=== PATIENT | male | born 1940 | race Caucasian/White ===

== ENCOUNTER 2018-05-18 16:47 | Inpatient (IN) ==
[2018-05-18] MEDS ORDERED: Sod Chloride 0.9% Inj 1,000 ML IV.CONT SCH (17:45)
[2018-05-18 19:41] LABS: Bacteria,Urine Rare /hpf; Bilirubin,Urine Negative (Negative); Clarity,Urine Clear (Clear); Color,Urine Amber (Yellw/Straw); Glucose,Urine (UA) Negative (Negative); Leukocyte Esterase,Urine Negative (Negative); Mucus,Urine Few /lpf (Occasional); Nitrite,Urine Positive (Negative); Specific Gravity,Urine 1.011 (1.002-1.035); Urobilinogen,Urine 4 or Greater mg/dL (Less than 2)
[2018-05-18 19:42] LABS: Activated Partial Thrombo Time 25.4 sec (24.3-30.1); Prothrombin Time 10.6 sec (9.8-11.6)
--- NOTE | 2018-05-18 19:50 | ED ---
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 Patient states that it started earlier this morning. [facility] given his [facility] they sent him here for further evaluation. The patient denies any headache. Patient denies any blurry vision. There are no other complaints at time of examination. Related Data Home Medications Medication Instructions Recorded Confirmed apixaban 5 mg PO BID 05/18/18 05/18/18 carvedilol 3.125 mg PO BID 05/18/18 05/18/18 doxycycline hyclate 100 mg PO BID 05/18/18 05/18/18 duloxetine 20 mg PO DAILY 05/18/18 05/18/18 hydrochlorothiazide 25 mg PO DAILY 05/18/18 05/18/18 methocarbamol 500 mg PO DAILY 05/18/18 05/18/18 methotrexate (PF) 25 mg SUB-Q QWEEK 05/18/18 05/18/18 omeprazole 40 mg PO AC 05/18/18 05/18/18 Allergies Allergy/AdvReac Type Severity Reaction Status Date / Time diatrizoate meglumine Allergy Unknown Gastrointestinal Verified 05/18/18 17:44 Upset gadobenic acid Allergy Unknown Hotflash Unverified 05/18/18 17:44 gadodiamide Allergy Unknown Edema, Unverified 05/18/18 17:44 Generalized gadoteridol Allergy Unknown Gastrointestinal Unverified 05/18/18 17:44 Upset iodine Allergy Unknown Gastrointestinal Unverified 05/18/18 17:44 Upset iodixanol Allergy Unknown Gastrointestinal Unverified 05/18/18 17:44 Upset iohexol Allergy Unknown Gastrointestinal Unverified 05/18/18 17:44 Upset potassium iodide Allergy Unknown Gastrointestinal Unverified 05/18/18 17:44 Upset povidone-iodine Allergy Unknown Gastrointestinal Unverified 05/18/18 17:44 Upset sodium iodide Allergy Unknown Gastrointestinal Verified 05/18/18 17:44 Upset sodium iodide Allergy Unknown Gastrointestinal Verified 05/18/18 17:44 Upset Review of Systems Except as stated in HPI: all other systems reviewed are negative Constitutional Denies chills and Denies fever(s) Eyes Denies blurry vision and Denies diplopia Cardiovascular Denies chest pain, Denies rapid heart rate and Denies irregular heart rhythm Respiratory Denies chest congestion and Denies cough Gastrointestinal Denies abdominal pain and Denies nausea Genitourinary Denies dysuria and Denies urinary incontinence Musculoskeletal Denies back pain and Denies arthralgias Neurologic Denies headache(s), Reports radicular pain (Right upper and right lower extremity), Reports tingling (Right upper and right lower extremity), Reports paresthesias and Reports weakness (Right upper and right lower extremity) [facility] Medical History Medical History C1-C2 vertebral instability (Acute) CVA (cerebral vascular accident) (Acute) Myocardial infarct (Acute) Social History Social History Substance History: No History of Abuse Smoking Status: Never smoker How Often Do You Have a Drink Containing Alcohol: Monthly or less Recent Travel in [facility] within the Last 8 Weeks: No Immunization History Tetanus Immunization: <5 Years Hx Influenza Vaccine This Season: Yes Exam Narrative Exam Narrative: GENERAL: Well-developed well-nourished male in no acute respiratory distress. SKIN: Focused skin assessment warm/dry. HEAD: Atraumatic. Normocephalic. EYES: Pupils equal and round. No scleral icterus. No injection or drainage. ENT: No nasal bleeding or discharge. Mucous membranes pink and moist. NECK: Trachea midline. No JVD. CARDIOVASCULAR: Regular rate and rhythm. No murmur appreciated. RESPIRATORY: No accessory muscle use. Clear to auscultation. Breath sounds equal bilaterally. GASTROINTESTINAL: Abdomen soft, non-tender, nondistended. Hepatic and splenic margins not palpable. MUSCULOSKELETAL: No obvious deformities. No clubbing. No cyanosis. No edema. NEUROLOGICAL: Awake and alert. No obvious cranial nerve deficits. Right upper extremity had 4 out of 5 strength. Right lower extremity had 4 out of 5 strength. Left upper and left lower extremity had 5 out of 5 strength. Sensation was intact in all 4 extremities. PSYCHIATRIC: Appropriate mood and affect; insight and judgment normal. Course Initial Documented Vital Signs Pulse Rate 94 H 05/18/18 17:00 Respiratory Rate 18 05/18/18 17:00 Pulse Oximetry 98 05/18/18 17:00 Last Documented Vital Signs Pulse Rate 82 05/18/18 21:13 Respiratory Rate 18 05/18/18 21:13 Blood Pressure 151/74 H 05/18/18 21:13 Pulse Oximetry 97 05/18/18 21:13 Sign Out Sign Out Data: Patient Sign Out occurred on 05/18/18 at 20:15. Patient's care was discussed, and care was transferred from Gildardo Calvo MD to Essence Araujo MD. Sign Out Comment: 78-year-old presents with right upper extremity and right lower extremity pain and weakness. Patient's had recent cervical spine fusion in [place]. MRI of the head and C-spine are pending at this time. Laboratory tests are pending. The patient's urinalysis does show evidence of a UTI. Patient was signed out to the physician at change of shift. Last updated by Gildardo Calvo MD at 05/18/18 19:50 Post-Handoff Eval: a PT of 10.6, INR 1.0, PTT 25.4The patient's case was checked out to me by Dr. Calvo at the conclusion of his shift. The patient presented with right upper extremity and right lower extremity pain and weakness. The patient underwent a recent cervical spine fusion in [place]. The patient also on May 13 had a myocardial infarction with stent placement. Laboratory studies were in progress at the conclusion of Dr. Calvo shift. The patient's diagnostic evaluation is remarkable for A PT of 10.6, INR 1.0, PTT 25.4, chemistries remarkable for an elevated troponin I of 5.35. Glucose 70 , GFR of 83, chloride 110, CO2 18.9, CPK is 156. It is unclear whether the patient's elevated troponin I is related to his recent AK with stent placement or new cardiac ischemia. The patient will be admitted to the hospital for serial cardiac enzyme and additional workup. The patient's urinalysis showed positive nitrite few mucus, rare bacteria. The patient was provided Rocephin [address] Calvo. Culture was indicated which will be done on the patient' s urinalysis. The patient denies having any chest pain currently. The patient was provided 1 low-dose aspirin for its cardiac protective effects as the patient is on apixaban as well. The patient was additionally given an inch of nitroglycerin paste to the chest wall. Old records are being obtained from the place that he had his myocardial infarction on May 13. The patient's EKG shows a sinus rhythm heart rate of 94, QRS duration 130 ms, QTC 428 ms. The patient has a right bundle branch block noted. The patient has T waves are inverted in its V1, V2, V3, lead III, aVF. No acute ST segment elevation is noted. The patient was noted to have a white count of 5.3, 11.3 monocytosis on differential , hemoglobin 13, platelets 233. The patient's case including history, pertinent physical examination findings, and laboratory studies were discussed with Dr. Banuelos. It was agreed that the patient would be admitted to the hospitalist service. The patient's results were discussed with the patient, including the plan of care. I explained that further testing and/ or monitoring is indicated based on the patient's history, examination, and/ or laboratory findings. Therefore, I recommended admission for additional evaluation. The patient expressed understanding and was agreeable with this plan. The patient was admitted to the hospital in guarded condition and sent to a bed under the care of [facility] service. Medical Decision Making MDM Narrative Medical decision making narrative: 78-year-old male with a history of previous CVA affecting his left side, recent AK, recent cervical spine surgery, presents today from his right upper extremity and right lower extremity pain and weakness. The patient has no headache. Labs and MRIs are pending at this time. Patient be signed out to the physician replaced me at change of shift. Disposition and diagnosis will be per Dr. Araujo. Lab Data Result diagrams: 05/18/18 20:30 05/18/18 19:00 Lab Results 05/18/18 05/18/18 05/18/18 Range/Units 19:00 19:00 19:10 WBC (4.0-11.0) th/mm3 RBC (4.50-5.90) mil/mm3 Hgb (13.0-17.0) gm/dL Hct (39.0-51.0) % MCV (80.0-100.0) fL MCH (27.0-34.0) pg MCHC (32.0-36.0) % RDW (11.6-17.2) % Plt Count (150-450) th/mm3 MPV (7.0-11.0) fL Neut % (Auto) (16.0-70.0) % Lymph % (Auto) (9.0-44.0) % Hamblen % (Auto) (0.0-8.0) % Eos % (Auto) (0.0-4.0) % Baso % (Auto) (0.0-2.0) % Neut # (Auto) (1.8-7.7) th/mm3 Lymph # (Auto) (1.0-4.8) th/mm3 Hamblen # (Auto) (0.0-0.9) th/mm3 Eos # (Auto) (0.0-0.4) th/mm3 Baso # (Auto) (0.0-0.2) th/mm3 WBC Differential Differential Comment PT 10.6 (9.8-11.6) sec INR 1.0 Ratio APTT 25.4 (24.3-30.1) sec Sodium 142 (136-145) meq/L Potassium 3.7 (3.5-5.1) meq/L Chloride 110 H (98-107) meq/L Carbon Dioxide 18.9 L (21.0-32.0) meq/L Anion Gap 13 (5-15) meq/L BUN 13 (7-18) mg/dL Creatinine 0.89 (0.60-1.30) mg/dL Estimated GFR 83 L (>89) mL/min Random Glucose 70 L (74-106) mg/dL Calcium 8.7 (8.5-10.1) mg/dL Total Creatine Kinase 156 (39-308) U/L CK-MB (CK-2) 3.5 (0.5-3.6) ng/mL Troponin I 5.35 H* (0.02-0.05) ng/mL Urine Color Sonya (Yellw/Straw) Urine Clarity Clear (Clear) Urine pH 7.0 (5.0-8.5) Ur Specific [place] 1.011 (1.002-1.035) Urine Protein Negative (Neg-Trace) mg/dL Urine Glucose (UA) Negative (Negative) mg/dL Urine Ketones Trace (Negative) mg/dL Urine Occult Blood Negative (Negative) Urine Nitrate Positive H (Negative) Urine Bilirubin Negative (Negative) Urine Urobilinogen 4 or greater (Less than 2) mg/dL Ur Leukocyte Esterase Negative (Negative) Urine RBC Less than 1 (0-3) /hpf Urine WBC 1 (0-5) /hpf Urine Bacteria Rare H (None) /hpf Urine Mucus Few H (Occasional) /lpf Micro UA Comment Culture indicated Urine Culture Comments Culture indicated 05/18/18 Range/Units 20:30 WBC 5.3 (4.0-11.0) th/mm3 RBC 3.83 L (4.50-5.90) mil/mm3 Hgb 13.0 (13.0-17.0) gm/dL Hct 38.7 L (39.0-51.0) % MCV 101.0 H (80.0-100.0) fL MCH 33.8 (27.0-34.0) pg MCHC 33.5 (32.0-36.0) % RDW 13.0 (11.6-17.2) % Plt Count 233 (150-450) th/mm3 MPV 8.8 (7.0-11.0) fL Neut % (Auto) 69.9 (16.0-70.0) % Lymph % (Auto) 16.4 (9.0-44.0) % Hamblen % (Auto) 11.3 H (0.0-8.0) % Eos % (Auto) 2.0 (0.0-4.0) % Baso % (Auto) 0.4 (0.0-2.0) % Neut # (Auto) 3.7 (1.8-7.7) th/mm3 Lymph # (Auto) 0.9 L (1.0-4.8) th/mm3 Hamb[place] # (Auto) 0.6 (0.0-0.9) th/mm3 Eos # (Auto) 0.1 (0.0-0.4) th/mm3 Baso # (Auto) 0.0 (0.0-0.2) th/mm3 WBC Differential . Differential Comment Auto diff final PT (9.8-11.6) sec INR Ratio APTT (24.3-30.1) sec Sodium (136-145) meq/L Potassium (3.5-5.1) meq/L Chloride (98-107) meq/L Carbon Dioxide (21.0-32.0) meq/L Anion Gap (5-15) meq/L BUN (7-18) mg/dL Creatinine (0.60-1.30) mg/dL Estimated GFR (>89) mL/min Random Glucose (74-106) mg/dL Calcium (8.5-10.1) mg/dL Total Creatine Kinase (39-308) U/L CK-MB (CK-2) (0.5-3.6) ng/mL Troponin I (0.02-0.05) ng/mL Urine Color (Yellw/Straw) Urine Clarity (Clear) Urine pH (5.0-8.5) Ur Specific [place] (1.002-1.035) Urine Protein (Neg-Trace) mg/dL Urine Glucose (UA) (Negative) mg/dL Urine Ketones (Negative) mg/dL Urine Occult Blood (Negative) Urine Nitrate (Negative) Urine Bilirubin (Negative) Urine Urobilinogen (Less than 2) mg/dL Ur Leukocyte Esterase (Negative) Urine RBC (0-3) /hpf Urine WBC (0-5) /hpf Urine Bacteria (None) /hpf Urine Mucus (Occasional) /lpf Micro UA Comment Urine Culture Comments Discharge Plan Discharge Disposition Patient Disposition: 30 Still Patient Discharge Details Discharge Problem: Recent myocardial infarction, Elevated troponin, Numbness and tingling of right upper and lower extremity, Urinary tract infection Physicians Team ED Provider: Essence Araujo Primary Care Provider: [facility] Attending Provider: Anamaria Banuelos Status ED Status: Admitted Patient
[2018-05-18 20:06] LABS: Anion Gap 13 meq/L (5-15); Blood Urea Nitrogen 13 mg/dL (7-18); Calcium 8.7 mg/dL (8.5-10.1); Carbon Dioxide 18.9 meq/L (21.0-32.0); Chloride 110 meq/L (98-107); Creatine Kinase 156 U/L (39-308); Glomerular Filtration Rate 83 mL/min (>89); Glucose,Random 70 mg/dL (74-106); Sodium 142 meq/L (136-145)
[2018-05-18 20:07] LABS: Potassium 3.7 meq/L (3.5-5.1)
[2018-05-18 20:09] LABS: Troponin I 5.35 ng/mL (0.02-0.05)
[2018-05-18 20:21] LABS: Creatine Kinase MB 3.5 ng/mL (0.5-3.6)
[2018-05-18 21:15] LABS: Baso % (Auto) 0.4 % (0.0-2.0); Eos # (Auto) 0.1 th/mm3 (0.0-0.4); Hematocrit 38.7 % (39.0-51.0); Lymph # (Auto) 0.9 th/mm3 (1.0-4.8); Lymph % (Auto) 16.4 % (9.0-44.0); Mean Corpuscular HGB Conc 33.5 % (32.0-36.0); Mean Corpuscular Hemoglobin 33.8 pg (27.0-34.0); Mean Platelet Volume 8.8 fL (7.0-11.0); Mono # (Auto) 0.6 th/mm3 (0.0-0.9); Mono % (Auto) 11.3 % (0.0-8.0); Neut # (Auto) 3.7 th/mm3 (1.8-7.7); Neut % (Auto) 69.9 % (16.0-70.0); Platelet Count 233 th/mm3 (150-450); Red Blood Count 3.83 mil/mm3 (4.50-5.90); White Blood Count 5.3 th/mm3 (4.0-11.0)
[2018-05-18] MEDS ORDERED: Morphine Sulfate Inj 2 MG/ML Vial IV.PUSH PRN (21:47)
[2018-05-18] MEDS ORDERED: Acetaminophen 325 MG Tablet PO PRN (21:47)
--- NOTE | 2018-05-18 22:12 | P.HP ---
History of Present Illness Service: [facility] Primary Care Physician: [facility] Chief Complaint: Extremity numbness/weakness History of Present Illness: 78-year-old male with a past medical history significant for previous CVA, hypertension, hyperlipidemia, CAD status post AL on 05/13/18 with stent placement to the LAD presents the emergency department for the evaluation of right sided numbness and weakness. The patient states that earlier today his right hand and arm became numb and weak. He states he has similar symptoms in his right lower extremity and that it is just "not working the way he wants it to." He also endorses a right shoulder pain with tingling down his right arm and a left lower extremity pain that he believes is just muscle cramping. [facility] and [facility] through C6 [facility] on 04/24/18. His troponin is elevated at 5.35. He denies any chest pain or shortness of breath. No abdominal pain. No nausea/vomiting/diarrhea. No fevers/chills. Inpatient Certification: I certify that the inpatient services were ordered in accordance with Medicare regulations governing the order. This includes certification that hospital inpatient services are reasonable and necessary and in the case of services not specified as inpatient-only under 42 CFR 419.22(n), that they are appropriately provided as inpatient services in accordance to with the 2-midnight benchmark under 43 CFR 412.3(e) Estimated Total Length of Stay (Days): 2 Plans for Post Hospital Care: Not yet determined Review of Systems All other systems reviewed negative except as stated in HPI [facility] - History History Provided By: Patient - Medical History Medical History: Medical History (Last Updated 05/18/18 @ 22:04 by Anamaria Banuelos MD) C1-C2 vertebral instability CAD (coronary artery disease) CVA (cerebral vascular accident) Cervical vertebral fusion HLD (hyperlipidemia) HTN (hypertension) Myocardial infarct - Surgical History Surgical History: Surgical History (Last Updated 05/18/18 @ 22:04 by Anamaria Banuelos MD) History of mandibular surgery History of shoulder surgery Hx of tonsillectomy S/P TURP S/P nasal surgery - Family History Family History: Family History (Last Updated 05/18/18 @ 22:04 by Anamaria Banuelos MD) Other No family history of coronary artery disease - Tobacco History Smoking Status: Never smoker - Alcohol History How Often Do You Have a Drink Containing Alcohol: Monthly or less - Substance Use History Substance History: No History of Abuse - Travel History Recent Travel in the [place] Within the Last 8 Weeks: No - Immunization History Tetanus Immunization: <5 Years Hx Influenza Vaccine This Season: Yes Medications and Allergies Active Medications: Active Medications Acetaminophen (Tylenol) 650 mg PO Q4H PRN PRN Reason: HEADACHE OR TEMP > 101 F Sodium Chloride (Ns Inj) 1,000 mls @ 70 mls/hr IV.CONT .[id number] GIBRAN Stop: 05/19/18 08:02 Last Admin: 05/18/18 18:50 Dose: 70 mls/hr Ceftriaxone Sodium 1,000 mg/ (Sodium Chloride) 100 mls @ 200 mls/hr IV.SIG Q12H GIBRAN Last Admin: 05/18/18 21:08 Dose: 200 mls/hr Ceftriaxone Sodium 1,000 mg/ (Sodium Chloride) 100 mls @ 200 mls/hr IV.SIG Q24H GIBRAN Morphine Sulfate (Morphine Inj) 2 mg IV.PUSH Q30M PRN PRN Reason: CHEST PAIN Nitroglycerin (Nitro-Bid 2% Oint) 1 inch TOPICAL Q6HR GIBRAN Ondansetron HCl (Zofran Inj) 4 mg IV.PUSH Q6H PRN PRN Reason: NAUSEA OR VOMITING Sodium Chloride (Ns Flush) 2 ml IV.FLUSH PRN PRN PRN Reason: FLUSH AFTER USING IV ACCESS Sodium Chloride (Ns Inj) 2 ml IV.FLUSH BID GIBRAN Sodium Chloride (Ns Inj) 2 ml IV.FLUSH UNSCH PRN PRN Reason: FLUSH AFTER USING IV ACCESS Allergies Allergy/AdvReac Type Severity Reaction Status Date / Time diatrizoate meglumine Allergy Unknown Gastrointestinal Verified 05/18/18 17:44 Upset gadobenic acid Allergy Unknown Hotflash Unverified 05/18/18 17:44 gadodiamide Allergy Unknown Edema, Unverified 05/18/18 17:44 Generalized gadoteridol Allergy Unknown Gastrointestinal Unverified 05/18/18 17:44 Upset iodine Allergy Unknown Gastrointestinal Unverified 05/18/18 17:44 Upset iodixanol Allergy Unknown Gastrointestinal Unverified 05/18/18 17:44 Upset iohexol Allergy Unknown Gastrointestinal Unverified 05/18/18 17:44 Upset potassium iodide Allergy Unknown Gastrointestinal Unverified 05/18/18 17:44 Upset povidone-iodine Allergy Unknown Gastrointestinal Unverified 05/18/18 17:44 Upset sodium iodide Allergy Unknown Gastrointestinal Verified 05/18/18 17:44 Upset sodium iodide Allergy Unknown Gastrointestinal Verified 05/18/18 17:44 Upset Home Medications Medication Instructions Recorded Confirmed Type apixaban 5 mg PO BID 05/18/18 05/18/18 History carvedilol 3.125 mg PO BID 05/18/18 05/18/18 History doxycycline hyclate 100 mg PO BID 05/18/18 05/18/18 History duloxetine 20 mg PO DAILY 05/18/18 05/18/18 History hydrochlorothiazide 25 mg PO DAILY 05/18/18 05/18/18 History methocarbamol 500 mg PO DAILY 05/18/18 05/18/18 History methotrexate (PF) 25 mg SUB-Q QWEEK 05/18/18 05/18/18 History omeprazole 40 mg PO AC 05/18/18 05/18/18 History Exam Vital signs: Vital Signs 05/18/18 17:00 05/18/18 17:08 05/18/18 19:21 Pulse Rate 94 H 90 Respiratory Rate 18 18 Blood Pressure Pulse Oximetry 98 98 97 05/18/18 19:25 05/18/18 21:13 Pulse Rate 82 Respiratory Rate 18 Blood Pressure 151/74 H Pulse Oximetry 97 97 Intake & Output 05/18/18 05/18/18 05/19/18 06:59 18:59 06:59 Weight 77 kg Narrative: Gen.: No acute distress Head: Normocephalic. Atraumatic. EENT: Pupils equal round and reactive to light. Nose without drainage. Airway intact. Throat without injection. Cardiovascular: Regular rate and rhythm. No murmurs, rubs or gallops. Respiratory: Lungs clear to auscultation bilaterally. No wheezes or rhonchi. Abdomen: Soft, nontender, nondistended. No peritoneal signs. Musculoskeletal: No gross deformities. No edema. Skin: No obvious rashes or erythema. Neuro: Cranial nerves II through XII intact. Right hand strength 4/5. Right lower extremity strength 4/5. Left upper and lower extremity 5/5. Sensation intact in all 4 extremities. Psych: Appropriate mood and affect Results - Labs CBC & Chem 7: 05/18/18 20:30 05/18/18 19:00 Labs: Laboratory Results - last 24 hr 05/18/18 05/18/18 05/18/18 19:00 19:00 19:10 WBC RBC Hgb Hct MCV MCH MCHC RDW Plt Count MPV Neut % (Auto) Lymph % (Auto) Dukes % (Auto) Eos % (Auto) Baso % (Auto) Neut # (Auto) Lymph # (Auto) Dukes # (Auto) Eos # (Auto) Baso # (Auto) WBC Differential Differential Comment PT 10.6 INR 1.0 APTT 25.4 Sodium 142 Potassium 3.7 Chloride 110 H Carbon Dioxide 18.9 L Anion Gap 13 BUN 13 Creatinine 0.89 Estimated GFR 83 L Random Glucose 70 L Calcium 8.7 Total Creatine Kinase 156 CK-MB (CK-2) 3.5 Troponin I 5.35 H* Urine Color Sonya Urine Clarity Clear Urine pH 7.0 Ur Specific [place] 1.011 Urine Protein Negative Urine Glucose (UA) Negative Urine Ketones Trace Urine Occult Blood Negative Urine Nitrate Positive H Urine Bilirubin Negative Urine Urobilinogen 4 or greater Ur Leukocyte Esterase Negative Urine RBC Less than 1 Urine WBC 1 Urine Bacteria Rare H Urine Mucus Few H Micro UA Comment Culture indicated Urine Culture Comments Culture indicated 05/18/18 20:30 WBC 5.3 RBC 3.83 L Hgb 13.0 Hct 38.7 L MCV 101.0 H MCH 33.8 MCHC 33.5 RDW 13.0 Plt Count 233 MPV 8.8 Neut % (Auto) 69.9 Lymph % (Auto) 16.4 Dukes % (Auto) 11.3 H Eos % (Auto) 2.0 Baso % (Auto) 0.4 Neut # (Auto) 3.7 Lymph # (Auto) 0.9 L Dukes # (Auto) 0.6 Eos # (Auto) 0.1 Baso # (Auto) 0.0 WBC Differential . Differential Comment Auto diff final PT INR APTT Sodium Potassium Chloride Carbon Dioxide Anion Gap BUN Creatinine Estimated GFR Random Glucose Calcium Total Creatine Kinase CK-MB (CK-2) Troponin I Urine Color Urine Clarity Urine pH Ur Specific [place] Urine Protein Urine Glucose (UA) Urine Ketones Urine Occult Blood Urine Nitrate Urine Bilirubin Urine Urobilinogen Ur Leukocyte Esterase Urine RBC Urine WBC Urine Bacteria Urine Mucus Micro UA Comment Urine Culture Comments Caprini VTE Risk Assessment Caprini VTE Risk Assessment: Moderate/High Risk (score >= 2) Caprini Risk Assessment Model: Point Value = 1 Point Value = 2 Point Value = 3 Point Value = 5 Age 41-60 Minor surgery BMI > 25 kg/m2 Swollen legs Varicose veins or History of unexplained or recurrent spontaneous Oral contraceptives or hormone replacement Sepsis (< 1 month) Serious lung disease, including pneumonia (< 1 month) Abnormal pulmonary function Acute myocardial infarction Congestive heart failure (< 1 month) History of inflammatory bowel disease Medical patient at bed rest Age 61-74 Arthroscopic surgery Major open surgery (> 45 min) Laparoscopic surgery (> 45 min) Malignancy Confined to bed (> 72 hours) Immobilizing plaster cast Central venous access Age >= 75 History of VTE Family history of VTE Factor V Leiden Prothrombin [id number] Lupus anticoagulant Anticardiolipin antibodies Elevated serum homocysteine Heparin-induced thrombocytopenia Other congenital or acquired thrombophilia Stroke (< 1 month) Elective arthroplasty Hip, pelvis, or leg fracture Acute spinal cord injury (< 1 month) Prophylaxis Regimen: Total Risk Factor Score Risk Level Prophylaxis Regimen 0-1 Low Early ambulation 2 Moderate Order ONE of the following: *Sequential Compression Device (SCD) *Heparin 5000 units SQ BID 3-4 Higher Order ONE of the following medications: *Heparin 5000 units SQ TID *Enoxaparin/Lovenox 40 mg SQ daily (WT < 150 kg, CrCl > 30 mL/min) *Enoxaparin/Lovenox 30 mg SQ daily (WT < 150 kg, CrCl > 10-29 mL/min) *Enoxaparin/Lovenox 30 mg SQ BID (WT < 150 kg, CrCl > 30 mL/min) AND/OR *Sequential Compression Device (SCD) 5 or more Highest Order ONE of the following medications: *Heparin 5000 units SQ TID (Preferred with Epidurals) *Enoxaparin/Lovenox 40 mg SQ daily (WT < 150 kg, CrCl > 30 mL/min) *Enoxaparin/Lovenox 30 mg SQ daily (WT < 150 kg, CrCl > 10-29 mL/min) *Enoxaparin/Lovenox 30 mg SQ BID (WT < 150 kg, CrCl > 30 mL/min) AND *Sequential Compression Device (SCD) Assessment and Plan - Plan Assessment/plan: 1. CAD/recent AL/elevated troponin Patient status post AL on 05/13/18 with drug-eluting stent placement to the LAD at that time Troponin elevated at 5.35, likely trending down status post recent AL Serial troponins/EKGs to rule out repeat cardiac event EKG with inverted T waves without ST segment elevation or depression, personally reviewed Continue home medications once reconciled 2. Right upper and lower extremity weakness/numbness Head CT pending MRI brain pending MRI neck pending as patient with history of cervical fusion less than 1 month ago, concern for radiculopathy Patient with history of CVA -rule out TIA versus stroke Neurology consulted, appreciate assistance 3. UTI UA consistent with urinary tract infection Urine culture pending Rocephin 4. Hypertension/hyperlipidemia Continue home medications once reconciled FEN N.p.o. Electrolytes: Monitor and replete as needed NS at 70 cc/hour
--- NOTE | 2018-05-18 22:38 | CT ---
EXAM DATE: 05/18/2018 9:26 PM EDT AGE/SEX: 78 years / Male INDICATIONS: Right arm weakness. CLINICAL DATA: This is the patient's initial encounter. Patient reports that signs and symptoms have been present for 1 day and indicates a pain score of 0/10. MEDICAL/SURGICAL HISTORY: Cerebrovascular disease. Myocardial infarction. Fusion, cervical. RADIATION DOSE: 39.33 CTDI (mGy) COMPARISON: No prior exams available for comparison. TECHNIQUE: CT of the head without contrast. Using automated exposure control and adjustment of the mA and/or kV according to patient size, radiation dose was kept as low as reasonably achievable to ob tain optimal diagnostic quality images. DICOM format image data is available electronically for revi ew and comparison. FINDINGS: Cerebrum: The ventricles are normal for age. No evidence of midline shift, mass lesion, hemorrhage or acute infarction. No extraaxial fluid collections are seen. Posterior Fossa: The cerebellum and brainstem are intact. The 4th ventricle is midline. The cerebe llopontine angle is unremarkable. Extracranial: The visualized portion of the orbits is intact. Skull: The calvaria is intact. No evidence of skull fracture. CONCLUSION: No acute intracranial abnormality. Electronically signed by: Anam Egan MD 05/18/2018 10:37 PM EDT
--- NOTE | 2018-05-18 22:41 | XR ---
EXAM DATE: 05/18/2018 9:41 PM EDT AGE/SEX: 78 years / Male INDICATIONS: Chest pain tonight. CLINICAL DATA: This is the patient's initial encounter. Patient reports that signs and symptoms have been present for 1 day and indicates a pain score of 5/10. MEDICAL/SURGICAL HISTORY: None. Fusion, cervical. COMPARISON: No prior exams available for comparison. FINDINGS: The heart size is normal. There is some minimal prominence of interstitium. An alveolar consolidation is not seen. A significant effusion is not seen. There is an anterior cervical fusion plate present. CONCLUSION: Prominence of interstitium. Underlying interstitial disease may be present. Some degree of edema may be present. Electronically signed by: Anam Egan MD 05/18/2018 10:40 PM EDT
--- NOTE | 2018-05-18 22:52 | MR ---
EXAM DATE: 05/18/2018 10:45 PM EDT AGE/SEX: 78 years / Male INDICATIONS: . Dizziness with fall. CLINICAL DATA: This is the patient's initial encounter. Patient reports that signs and symptoms have been present for 1 day and indicates a pain score of 3/10. MEDICAL/SURGICAL HISTORY: Mesenteric ischemia. Carcinoma, prostatic. Stroke. Coronary artery stent. Fusion, cervical. Tonsillectomy. Jaw fx sx, Tumors removed with face and ears. [place] [facility] [place]. . TECHNIQUE: Multiplanar, multisequence examination of the brain was performed without contrast. FINDINGS: Cerebrum: There is a small punctate area of increased signal seen within the left posterior medial te mporal lobe measuring 4 mm on the T2, FLAIR, and diffusion weighted images. This could be an area of T2 shine through phenomenon. No other potential acute abnormality is seen. The ventricles are normal for age. No evidence of midline shift, mass lesion, hemorrhage or acute infarction. No extraaxial f luid collections are seen. The pituitary gland and suprasellar cistern are normal in configuration. White Matter: There are some minimal increased signal in the periventricular white matter. Posterior Fossa: The cerebellum and brainstem are intact. The 4th ventricle is midline. The cerebel lopontine angle is unremarkable. The cerebellar tonsils are normal in position. Extracranial: The visualized portions of the orbits and paranasal sinuses are unremarkable. CONCLUSION: 1. No definite acute abnormality is seen. 2. There is a small area of suspected T2 shine through phenomenon likely from prior insult or focal area of demyelination at the medial posterior left temporal lobe. 3. Minimal periventricular demyelination. Electronically signed by: Anam Egan MD 05/18/2018 10:51 PM EDT
[2018-05-18] MEDS: Sod Chloride 0.9% Inj 1,000 ML IV.CONT SCH (23:01)
--- NOTE | 2018-05-18 23:18 | MR ---
EXAM DATE: 05/18/2018 11:01 PM EDT AGE/SEX: 78 years / Male INDICATIONS: Pain. Recent CSP fusion surgery. CLINICAL DATA: This is the patient's initial encounter. Patient reports that signs and symptoms have been present for 1 day and indicates a pain score of 4/10. MEDICAL/SURGICAL HISTORY: Mesenteric ischemia. Carcinoma, prostatic. Transient ischemic attac k. Coronary artery stent. Fusion, cervical. Tonsillectomy. Jaw sx and Left side ear sx, TURP, Tumo rs removed from face. COMPARISON: No prior exams available for comparison. TECHNIQUE: Multiplanar, multisequence MRI examination of the cervical spine was performed without co ntrast. FINDINGS: Vertebrae: The patient is status post fusion at the C3-C6 levels. There is an anterior cervical fusi on plate present. The bone plugs are seen at the C3-C4, C4-C5 and C5-C6 disc levels. There is some increased signal on the T2-weighted images at the C3-C6 vertebral bodies. Extension into the pedicles is not seen. There is minimal prevertebral soft tissue edema seen at the C3-T1 levels. A focal fluid collection is not s een. Alignment: Normal. Cord: There is a small focal area of increased signal seen within the cord at the C4-C5 level on the posterior right side measuring 2 mm. Post Fossa: The cerebellar tonsils are normal in position. C2-C3: The thecal sac has a normal configuration. There is no evidence of disc herniation or spinal canal stenosis. The neural foramina are patent bilaterally C3-C4: The patient is status post fusion at this level.. There appears to be mild posterior osteophy tic ridging off the posterior superior aspect of C4. This causes a mild to moderate impression on the jayshree sac. There is a thin layer CSF seen around the cord. There is uncovertebral hypertrophy with some narrowing of the neural foramina. C4-C5: The patient is status post fusion at this level. There is prominent osteophytic ridging seen at the right lateral recess region causing a moderate impression on the anterior right-sided of the t hecal sac at this level. This abuts the anterior right side of the cord. There is a small focal area of increased signal within the posterior aspect of the cord on the right side at this level. There is uncovertebral hypertrophy with narrowing of the neural foramina. C5-C6: The patient is status post fusion at this level. A significant impression on the thecal sac i s not seen. There is uncovertebral hypertrophy with narrowing of the neural foramina bilaterally. C6-C7: There is mild diffuse disc bulge causing a mild to moderate impression on thecal sac. It cont inues be CSF around the cord. There is uncovertebral hypertrophy with mild narrowing of the neural fo ramina. C7-T1: No epidural impressions seen. CONCLUSION: 1. Status post fusion at the C3-C6 levels. There is some increased signal within the vertebral betty s likely related to postoperative change. Focal fluid collection is not seen. There is minimal prever tebral edema seen inferior to this level. 2. The suspected osteophytic ridging at the C3-C4 and C4-C5 levels causing impressions on the thecal sac. At the C4-C5 level this abuts the anterior right side of the cord. There is a small focal area of myelomalacia within the cord measuring 2 mm at the C4-C5 level. 3. Mild disc bulge at the C6-C7 level causing a mild to moderate impression on the thecal sac. 4. Uncovertebral hypertrophy causing neural foraminal narrowing at the C3-C4 through C6-C7 levels as described above. Electronically signed by: Anam Egan MD 05/18/2018 11:17 PM EDT
[2018-05-19 03:04] LABS: Troponin I 4.79 ng/mL (0.02-0.05)
[2018-05-19 07:42] LABS: Baso % (Auto) 0.4 % (0.0-2.0); Eos # (Auto) 0.1 th/mm3 (0.0-0.4); Eos % (Auto) 2.8 % (0.0-4.0); Hematocrit 34.9 % (39.0-51.0); Hemoglobin 11.5 gm/dL (13.0-17.0); Lymph # (Auto) 0.8 th/mm3 (1.0-4.8); Lymph % (Auto) 17.8 % (9.0-44.0); Mean Corpuscular Hemoglobin 33.6 pg (27.0-34.0); Mean Corpuscular Volume 101.9 fL (80.0-100.0); Mean Platelet Volume 8.3 fL (7.0-11.0); Mono # (Auto) 0.6 th/mm3 (0.0-0.9); Mono % (Auto) 12.6 % (0.0-8.0); Neut % (Auto) 66.4 % (16.0-70.0); Platelet Count 227 th/mm3 (150-450); Red Blood Count 3.42 mil/mm3 (4.50-5.90); White Blood Count 4.6 th/mm3 (4.0-11.0)
[2018-05-19 08:14] LABS: Anion Gap 8 meq/L (5-15); Blood Urea Nitrogen 7 mg/dL (7-18); Calcium 7.6 mg/dL (8.5-10.1); Carbon Dioxide 20.6 meq/L (21.0-32.0); Chloride 113 meq/L (98-107); Glomerular Filtration Rate Greater Than 89 mL/min (>89); Glucose,Random 92 mg/dL (74-106); Sodium 142 meq/L (136-145)
[2018-05-19 08:18] LABS: Potassium 4.2 meq/L (3.5-5.1)
[2018-05-19 08:35] LABS: Troponin I 3.9 ng/mL (0.02-0.05)
--- NOTE | 2018-05-19 08:40 | MB ---
cc: Dalton Ramirez MD DATE: 05/19/2018 HISTORY OF PRESENT ILLNESS: A 78-year-old left-handed man with hypertension, hypercholesterolemia, psoriasis, for which he takes methotrexate. He had a pulmonary embolism in September of last year, was on Eliquis until about February, was taken off of that and then in March had a stroke with some left-sided weakness and was put on an aspirin. Then he had a neck surgery for cervical spinal stenosis on Father's Day of this year, so about 3 weeks ago. He had cervical spinal stenosis with some weakness in his right arm that is residual. He has also had imbalance from that. Then he had an OR on 05/13/2018 and had several stents done in [place] and has been on Brilinta and baby aspirin since that time. This morning, he developed some right arm spasms and numbness in the right arm and leg and a tremor in the right hand, which has gone away. No vision loss on the left side. He had some seizures in the 70s after a [place] War injury. None since. MEDICATIONS AT HOME: 1. He is on Percocet. 2. Dilaudid. 3. Folic acid. 4. Norvasc. 5. Terazosin. 6. Pyridium. 7. Xanax. 8. Metoprolol. 9. Brilinta 10. 81 of Aspirin. 11. Omeprazole. 12. Methotrexate. 13. Methocarbamol. 14. Hydrochlorothiazide. 15. Duloxetine. ALLERGIES: ALLERGIC TO IODINE, IT CAUSES GI UPSET, DIATRIZOATE, GADOBENIC ACID, GADODIAMIDE, GADOTERIDOL. REVIEW OF SYSTEMS: He denied any diabetes, known atrial fibrillation, renal failure, although he has had a UTI. No history of hepatic disease, major pulmonary disease besides the PE. Thyroid lupus, ulcer. He has had a lot of skin cancers on his face, squamous cell and basal cell, but no metastases. No history of RRR. SOCIAL HISTORY: He is not a smoker. He occasionally has a drink. He lives with his . FAMILY HISTORY: Negative for cancer, seizure or stroke. PHYSICAL EXAMINATION: On exam, he has been in sinus rhythm here 151/74, 18, 82. NECK: There are no carotid bruits. HEART: Regular rate and rhythm. I did not detect a murmur. NEUROLOGIC: Pupils were equal. Visual segura are full. Extraocular movements intact without nystagmus. Face was symmetric with mild decreased sensation on the lower part of the face on the right compared to the left. Tongue was midline. There is no drift. He had normal strength in the left upper and bilateral lower extremities. Right upper extremity, the triceps is about a 4+/5, finger extensors area about a 4/5, that appears to be old, he tells me. DTRs are trace throughout. Toes downgoing bilaterally. There is no ankle clonus. Pinprick was symmetrical in the arms and legs. He is not ataxic on [id number]. Speech is fluent. He is not aphasic. LABORATORY DATA: CBC essentially normal. UA negative. Basic metabolic profile was normal. Troponin is 5. Coags normal. IMAGING: MRI of the brain shows a small acute infarct in the left posterior medial temporoparietal region. I do not see any old stroke in the right hemisphere, although there are a few white matter changes in the right frontal head region just subcortical. MRI of the cervical spine shows a lot of DJD, moderate spinal stenosis, not major. There appears to be some damage to the cord on the right side that is chronic, status post fusion C3-C6, myelomalacia was seen at C4-C5. IMPRESSION: Small stroke here. History of pulmonary embolus in September, stroke on the right side of the brain in March, another stroke now on the left side of the brain, small. I suspect he could have atrial fibrillation and whether he is hypercoagulable or not is indeterminate. PLAN: We will check some hypercoagulable screens on him, but I would recommend he be coumadinized and it appears that he had another OR. I would not be against IV heparin. He had the neck surgery about 3 weeks ago and would recommend the med team just clear with neurosurgery that it would be okay to put him on heparin now 3 weeks postop and probably would be alright. Of course, he is going to have increased risks on the antiplatelets and the anticoagulation, but more than likely he has got clots coming from the heart which are not going to be covered with the antiplatelets alone and in fact are not, since he has had a small stroke here on the antiplatelets. He should get a loop recorder placed and be started on Coumadin after he gets a dose of heparin to prevent any acute hypercoagulable state on the Coumadin when its started. We will also check an MRA of the head and neck. MD RADHA Bates/KEL , 08:11 AM , 08:38 AM
[2018-05-19] MEDS ORDERED: Methocarbamol 500 MG Tablet PO SCH (09:00)
[2018-05-19] MEDS ORDERED: amLODIPine 5 MG Tablet PO SCH (09:00)
[2018-05-19] MEDS ORDERED: Acetaminophen 325 MG Tablet PO PRN (09:17)
[2018-05-19] MEDS: hydroCHLOROthiazide 25 MG Tablet PO SCH (10:10)
[2018-05-19] MEDS: Metoprolol Tartrate 25 MG Tablet PO SCH ×2 (10:11→21:00)
[2018-05-19] MEDS: ALPRAZolam 0.25 MG Tablet PO SCH ×2 (10:12→22:14)
[2018-05-19] MEDS ORDERED: Heparin Drip 25,000 UNIT/250 ML BAG IV.CONT PRN (11:00)
--- NOTE | 2018-05-19 13:49 | MB ---
cc: Moise Araujo MD DATE: 05/19/2018 REASON FOR CONSULTATION: Evaluation for possible event recorder status post cerebrovascular accident. HISTORY OF PRESENT ILLNESS: Jonnathan Gilliland is a 78-year-old man who has had a rough year. Back in September, he developed a DVT in the right leg and subsequently had a pulmonary embolism. This followed a long plane flight and then a long car drive. He was on Eliquis until in February. In February, he was taken off of EliSendoidis. Starting in March, he has been getting a pleuritic chest pain that is better laying down and improved sitting up. He had a stroke in March. This was manifested as left leg, left arm weakness and drooling. He was at the [facility]. Following their evaluation, he was found to have cervical spine disease also affecting his right arm and right leg, so he underwent surgery on his cervical spine. The surgery on his cervical spine was 04/24/2018. Then, 05/13/2018, he had an acute anterior STEMI. He ended up undergoing stenting by my partner, Dr. Lazaro in [place] 05/13/2018. He had a 99% proximal to mid LAD. This was stented with a 3.5 x 20 mm Synergy stent postdilated with a 3.75 mm noncompliant balloon. Peak troponin during that admission was 3.54. He was discharged home. Today, he was at the [place] and sent by ambulance over to the hospital because of new right-sided numbness and weakness and per Dr. Dalton Ramirez, he has now had an acute left temporoparietal stroke. Dr. Ramirez thought that this was not his first stroke and that is was most likely embolic and wanted a loop recorder and put on anticoagulant therapy for atrial fibrillation. The patient has been taking 81 mg aspirin and Brilinta since the WA on the . His WA was complicated by vomiting blood, but he has had no subsequent vomiting and has not noticed any other bleeding. He does not have any anginal type chest pain. He does have pain when he takes a deep breath and its worse sitting up then lying down. He notices a fast irregular pulse particularly in the last 3-4 weeks on an intermittent basis. It is also possible other than atrial fibrillation that he could have thrown a clot from his left ventricle since he would be at increased risk of that following an anterior STEMI. He has also had pulmonary embolism and DVT. He has been off anticoagulation since February. His pleuritic chest pain is better lying down and worse sitting up. This does not sound typical of pericarditis and sounds more like a PE. He is on anticoagulation, so I am not sure it is worth it to repeat a CTA of the lungs, but I am suspicious for a PE at some point. We have the added complexity of the fact that he needs blood thinners for possible atrial fibrillation or PE and he needs blood thinners for a stent. MEDICATIONS: 1. Carvedilol 3.125 b.i.d. 2. Aspirin 81 mg daily. 3. Brilinta 90 mg p.o. b.i.d. 4. He was not on apixaban at discharge. PAST MEDICAL HISTORY: 1. Coronary artery disease. 2. C-spine fusion. 3. Previous strokes. 4. Hyperlipidemia. 5. Hypertension. 6. Recent WA. 7. Hearing loss. 8. Benign prostatic hypertrophy. 9. Depression, anxiety. 10. Low back pain. 11. Right rotator cuff tendinopathy. 12. Seizures, none since 1973. 13. Diverticulosis. 14. Gastroesophageal reflux disease. 15. Carpal tunnel disease. 16. A mention of COPD, but he has never smoked. 17. Psoriasis. 18. 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 19. Pulmonary embolism 09/2017 with deep venous thrombosis of the right leg. PAST SURGICAL HISTORY: Includes: 1. Shoulder surgery. 2. Mandible surgery. 3. Tonsillectomy. 4. Nasal surgery. 5. TURP. FAMILY HISTORY: Negative for CAD. ALLERGIES: INCLUDE IVP AND STATINS. REVIEW OF SYSTEMS: Noncontributory except as those items already mentioned. PHYSICAL EXAMINATION: GENERAL: Well-developed, well-nourished white male, in no acute distress. VITAL SIGNS: Charted. He has been normotensive. Pulse rate has been in the 80s. HEENT: Unremarkable. NECK: Negative for JVD or bruits. CHEST: Shows no wheezes or rales. CARDIAC: PMI not palpable. Normal S1 and S2. Regular rate and rhythm. I do not appreciate murmurs or gallops. ABDOMEN: Soft, nontender. EXTREMITIES: Reveal intact pulses. EKG shows sinus rhythm, right bundle branch block and previous anteroseptal WA. It l looked similar to the EKGs from [place]. Chest x-ray showed slight interstitial prominence. LABORATORY DATA: Hematocrit was 34.9, was 38.7 yesterday. Troponin was 5.35 when he came in, 3.91 on repeat. His creatinine is normal. IMPRESSION: A very complicated 78-year-old man. He has had an acute anterior STEMI 05/13/2018 and had his left anterior descending artery stented. He has been on aspirin and Brilinta. He has not had any typical anginal pain since the stent. His troponin is elevated. Its a different lab assay here than in [place]. So it is hard to interpret the absolute troponin numbers. He does not give me a history of any ischemic type pain and I would think it is unlikely that he is having an acute coronary event at this time. He has evidence for bilateral cerebrovascular accidents. RECOMMENDATIONS: As a blood thinner expert, I am recommending that we use Eliquis as an anticoagulant and monotherapy with Brilinta for his coronary stent. Most recent literature suggests the triple therapy has to high a risk of bleeding and that this can be reduced by the deleting the aspirin. The stent he had was a single stent fairly large diameter and Brilinta is a reliable P2Y12 inhibitor such that I think a stent would be okay on Brilinta without aspirin. Then I think we can safely use Eliquis in combination with it. I agree with Dr. Ramirez, an event recorder would be helpful to detect evidence for atrial fibrillation and I will try to have that arranged for tomorrow. In the meantime, I am checking an echo Doppler. I want to see what his LV function looks like, whether there is an apical clot and whether there is any pericardial effusion. I am transitioning from heparin to apixaban with a 9 p.m. dose today. We will also add stomach medication to reduce the risk of stomach bleeding. Further therapy to be determined. Moise Aarujo MD VEW/DL , 01:14 PM , 01:48 PM
[2018-05-19] MEDS ORDERED: Gadobutrol PF 10 MMOL/10 ML Vial (for RAD) IV.SIG ONE (13:56)
--- NOTE | 2018-05-19 14:54 | MR ---
EXAM DATE: 05/19/2018 2:15 PM EDT AGE/SEX: 78 years / Male INDICATIONS: Right sided weakness. CVA. CLINICAL DATA: This is the patient's initial encounter. Patient reports that signs and symptoms have been present for 2 days and indicates a pain score of 0/10. MEDICAL/SURGICAL HISTORY: Carcinoma, prostatic. Cerebrovascular disease. [place]. Coronary artery stent. Fusion, cervical. Tonsillectomy. TURP. COMPARISON: [facility] – [place], [place], MR HEAD W/O CONTRAST, 05/18/2018. . TECHNIQUE: 3D [id number] MRA was performed. Source images, multiplanar STS MIP, and 3D volum e MIP reconstructions were reviewed. FINDINGS: There is excellent visualization of the major intracranial arteries out to the second-order branch ve ssels. There is no evidence for aneurysm, vessel truncation or stenosis, and no evidence for vascula r malformation. CONCLUSION: 1. Unremarkable exam. 2. No evidence of significant steno-occlusive disease. Electronically signed by: Narendra Becker MD 05/19/2018 2:53 PM EDT
--- NOTE | 2018-05-19 14:59 | MR ---
EXAM DATE: 05/19/2018 2:16 PM EDT AGE/SEX: 78 years / Male INDICATIONS: Stenosis. CLINICAL DATA: This is the patient's subsequent encounter. Patient reports that signs and symptoms h ave been present for 2 days and indicates a pain score of 0/10. MEDICAL/SURGICAL HISTORY: Carcinoma, prostatic. Cerebrovascular disease. [place]. Coronary artery stent. Fusion, cervical. Tonsillectomy. TURP. COMPARISON: No prior exams available for comparison. TECHNIQUE: 10 ml Gadavist (gadobutrol) contrast infused MRA (single exam dose) of the extracranial circulation was performed using a neurovascular coil. Postprocessing was performed, including rotati ng sub-volume maximum intensity projections of each carotid artery, rotating full-volume maximum inte nsity projections of both carotid arteries, sagittal and coronal sliding thin-slab reformations of ea ch carotid artery, and left oblique sliding thin-slab reformation through the aortic arch to include the origin of the arch branch vessels. FINDINGS: Aortic Arch : There is a three-vessel origin of the great vessels from the aorta. No evidence of o stial narrowing. Right Carotid : The common carotid artery is intact. The carotid bulb has a normal configuration wi thout ulceration or narrowing. The internal carotid artery lumen is smooth without stenosis. The ex ternal carotid artery is intact. Left Carotid : The common carotid artery is intact. The carotid bulb has a normal configuration wit hout ulceration or narrowing. The internal carotid artery lumen is smooth without stenosis. The ext ernal carotid artery is intact. Vertebrals : The vertebral arteries have a symmetric diameter. No stenotic lesions are seen. CONCLUSION: 1. Negative MR angiography of the carotid arteries Percent stenosis is calculated using the diameter of the stenotic region over the diameter of the nor mal distal internal carotid artery Electronically signed by: Dalton Garcia MD 05/19/2018 2:58 PM [facility]LEIDA
--- NOTE | 2018-05-19 15:18 | P.PN ---
Subjective Interval history: Follow-up CVA/recent PA s/p stent placement May 19, 2018-patient seen and examined, denies any shortness of breath or chest pain. Case was discussed this a.m. with neurologist Dr. De Guzman Physical Exam Vital signs: Vital Signs 05/18/18 17:00 05/18/18 17:08 05/18/18 19:21 Temperature Pulse Rate 94 H 90 Respiratory Rate 18 18 Blood Pressure Pulse Oximetry 98 98 97 05/18/18 19:25 05/18/18 21:13 05/18/18 21:47 Temperature Pulse Rate 82 88 Respiratory Rate 18 14 Blood Pressure 151/74 H 128/75 Pulse Oximetry 97 97 97 05/19/18 05:00 05/19/18 06:33 05/19/18 10:22 Temperature Pulse Rate 82 81 Respiratory Rate 16 16 14 Blood Pressure 116/66 131/71 Pulse Oximetry 96 05/19/18 12:23 05/19/18 14:33 Temperature 98.2 F Pulse Rate 89 104 H Respiratory Rate 16 19 Blood Pressure 132/87 156/92 H Pulse Oximetry 96 97 Intake & Output 05/18/18 05/19/18 05/19/18 18:59 06:59 18:59 Intake Total 100 / 100 100 / 100 Output Total 380 / 380 Balance 100 / 100 -280 / -280 Weight 77 kg Intake: IV 100 / 100 100 / 100 Rocephin Inj 1,000 MG In NS Inj 100 / 100 100 / 100 100 ML @ 200 mls/hr IV.SIG Q12H [facility] Rx#:[id number] Output: Urine 380 / 380 Narrative: GENERAL: NAD SKIN: Warm and dry. HEAD: Normocephalic. EYES: No scleral icterus. No injection or drainage. NECK: Supple, trachea midline. No JVD or lymphadenopathy. CARDIOVASCULAR: Regular rate and rhythm without murmurs, gallops, or rubs. RESPIRATORY: Breath sounds equal bilaterally. No accessory muscle use. GASTROINTESTINAL: Abdomen soft, non-tender, nondistended. MUSCULOSKELETAL: No cyanosis, or edema. BACK: Nontender without obvious deformity. No CVA tenderness. Results - Labs CBC & Chem 7: 05/19/18 07:25 05/19/18 07:25 Laboratory Results - last 24 hr 07/09/18 07/09/18 07/09/18 19:00 19:00 19:10 WBC RBC Hgb Hct MCV MCH MCHC RDW Plt Count MPV Neut % (Auto) Lymph % (Auto) [place] % (Auto) Eos % (Auto) Baso % (Auto) Neut # (Auto) Lymph # (Auto) [place] # (Auto) Eos # (Auto) Baso # (Auto) WBC Differential Differential Comment PT 10.6 INR 1.0 APTT 25.4 Sodium 142 Potassium 3.7 Chloride 110 H Carbon Dioxide 18.9 L Anion Gap 13 BUN 13 Creatinine 0.89 Estimated GFR 83 L Random Glucose 70 L Calcium 8.7 Total Creatine Kinase 156 CK-MB (CK-2) 3.5 Troponin I 5.35 H* Urine Color Sonya Urine Clarity Clear Urine pH 7.0 Ur Specific [place] 1.011 Urine Protein Negative Urine Glucose (UA) Negative Urine Ketones Trace Urine Occult Blood Negative Urine Nitrate Positive H Urine Bilirubin Negative Urine Urobilinogen 4 or greater Ur Leukocyte Esterase Negative Urine RBC Less than 1 Urine WBC 1 Urine Bacteria Rare H Urine Mucus Few H Micro UA Comment Culture indicated Urine Culture Comments Culture indicated 05/18/18 05/19/18 05/19/18 20:30 02:00 07:25 WBC 5.3 4.6 RBC 3.83 L 3.42 L Hgb 13.0 11.5 L Hct 38.7 L 34.9 L MCV 101.0 H 101.9 H MCH 33.8 33.6 MCHC 33.5 33.0 RDW 13.0 13.0 Plt Count 233 227 MPV 8.8 8.3 Neut % (Auto) 69.9 66.4 Lymph % (Auto) 16.4 17.8 [place] % (Auto) 11.3 H 12.6 H Eos % (Auto) 2.0 2.8 Baso % (Auto) 0.4 0.4 Neut # (Auto) 3.7 3.0 Lymph # (Auto) 0.9 L 0.8 L [place] # (Auto) 0.6 0.6 Eos # (Auto) 0.1 0.1 Baso # (Auto) 0.0 0.0 WBC Differential . . Differential Comment Auto diff final Auto diff final PT INR APTT Sodium Potassium Chloride Carbon Dioxide Anion Gap BUN Creatinine Estimated GFR Random Glucose Calcium Total Creatine Kinase 112 CK-MB (CK-2) Troponin I 4.79 H* Urine Color Urine Clarity Urine pH Ur Specific [place] Urine Protein Urine Glucose (UA) Urine Ketones Urine Occult Blood Urine Nitrate Urine Bilirubin Urine Urobilinogen Ur Leukocyte Esterase Urine RBC Urine WBC Urine Bacteria Urine Mucus Micro UA Comment Urine Culture Comments 05/19/18 05/19/18 07:25 07:25 WBC RBC Hgb Hct MCV MCH MCHC RDW Plt Count MPV Neut % (Auto) Lymph % (Auto) [place] % (Auto) Eos % (Auto) Baso % (Auto) Neut # (Auto) Lymph # (Auto) [place] # (Auto) Eos # (Auto) Baso # (Auto) WBC Differential Differential Comment PT INR APTT Sodium 142 Potassium 4.2 Chloride 113 H Carbon Dioxide 20.6 L Anion Gap 8 BUN 7 Creatinine 0.77 Estimated GFR Greater than 89 Random Glucose 92 Calcium 7.6 L D Total Creatine Kinase 131 CK-MB (CK-2) Troponin I 3.90 H* Urine Color Urine Clarity Urine pH Ur Specific [place] Urine Protein Urine Glucose (UA) Urine Ketones Urine Occult Blood Urine Nitrate Urine Bilirubin Urine Urobilinogen Ur Leukocyte Esterase Urine RBC Urine WBC Urine Bacteria Urine Mucus Micro UA Comment Urine Culture Comments Microbiology 05/18/18 19:10 Clean Catch Urine Urine Culture - Preliminary No growth in 24 hours - Imaging Impressions Cervical Spine MRI 05/18/18 17:35 CONCLUSION: 1. Status post fusion at the C3-C6 levels. There is some increased signal within the vertebral bodies likely related to postoperative change. Focal fluid collection is not seen. There is minimal prevertebral edema seen inferior to this level. 2. The suspected osteophytic ridging at the C3-C4 and C4-C5 levels causing impressions on the thecal sac. At the C4-C5 level this abuts the anterior right side of the cord. There is a small focal area of myelomalacia within the cord measuring 2 mm at the C4-C5 level. 3. Mild disc bulge at the C6-C7 level causing a mild to moderate impression on the thecal sac. 4. Uncovertebral hypertrophy causing neural foraminal narrowing at the C3-C4 through C6-C7 levels as described above. Head MRI 05/18/18 17:35 CONCLUSION: 1. No definite acute abnormality is seen. 2. There is a small area of suspected T2 shine through phenomenon likely from prior insult or focal area of demyelination at the medial posterior left temporal lobe. 3. Minimal periventricular demyelination. Head CT 05/18/18 20:32 CONCLUSION: No acute intracranial abnormality. Chest X-Ray 05/18/18 21:19 CONCLUSION: Prominence of interstitium. Underlying interstitial disease may be present. Some degree of edema may be present. Head MRA 05/19/18 00:00 CONCLUSION: 1. Unremarkable exam. 2. No evidence of significant steno-occlusive disease. Neck MRA 05/19/18 00:00 CONCLUSION: 1. Negative MR angiography of the carotid arteries Percent stenosis is calculated using the diameter of the stenotic region over the diameter of the normal distal internal carotid artery Assessment and Plan - Plan 78-year-old man with 1. CAD/recent PA/elevated troponin Patient status post PA on 05/13/18 with drug-eluting stent placement to the LAD at that time Troponin elevated at 5.35, likely trending down status post recent PA Serial troponins/EKGs to rule out repeat cardiac event EKG with inverted T waves without ST segment elevation or depression, personally reviewed Continue home medications once reconciled 2. Right upper and lower extremity weakness/numbness Head CT noted MRI brain noted MRI neck pending as patient with history of cervical fusion less than 1 month ago, concern for radiculopathy Patient with history of CVA -rule out TIA versus stroke Neurology consulted, appreciate assistance Start heparin drip and will switch to Coumadin tonight Check 2D echo and consult cardiology 3. UTI UA consistent with urinary tract infection Urine culture pending Rocephin 4. Hypertension/hyperlipidemia Continue home medications once reconciled
--- NOTE | 2018-05-19 15:46 | ECHRPT ---
Indication: CVA/TIA CONCLUSIONS Normal left ventricular size. Mild concentric left ventricular hypertrophy. There is slight hpokinesis of the distal anterior wall and distal anteroseptal hughes. No atrial level shunt is demonstrated by color flow Doppler interrogation. Mild mitral valve regurgitation. There is trace tricuspid valve regurgitation. The estimated pulmonary arterial pressure is 43.4 mmHg. The pulmonary valve is not well visualized. BP: / HR: Rhythm: Sinus MEASUREMENTS (Male / Female) Normal Values Technical Quality:Fair 2D ECHO LV Diastolic Diameter PLAX 4.2 cm 4.2 - 5.9 / 3.9 - 5.3 cm LV Systolic Diameter PLAX 3.0 cm IVS Diastolic Thickness 1.2 cm 0.6 - 1.0 / 0.6 - 0.9 cm LVPW Diastolic Thickness 1.2 cm 0.6 - 1.0 / 0.6 - 0.9 cm LV Relative Wall Thickness 0.6 RV Internal Dim ED PLAX 2.5 cm LVOT Diameter 2.1 cm Aortic Root Diameter 3.1 cm LA Systolic Diameter LX 2.9 cm 3.0 - 4.0 / 2.7 - 3.8 cm M-MODE AV Cusp Separation MM 2.0 cm DOPPLER AV Peak Velocity 139.0 cm/s AV Peak Gradient 7.7 mmHg AV Mean Gradient 5.0 mmHg AV Velocity Time Integral 24.6 cm LVOT Peak Velocity 86.5 cm/s LVOT Peak Gradient 3.0 mmHg LVOT Velocity Time Integral 17.0 cm AV Area Cont Eq vti 2.4 cm AV Area Cont Eq pk 2.2 cm Mitral E Point Velocity 106.0 cm/s Mitral A Point Velocity 59.7 cm/s Mitral E to A Ratio 1.8 LV E' Lateral Velocity 5.7 cm/s Mitral E to LV E' Lateral Ratio 18.8 LV E' Septal Velocity 6.4 cm/s Mitral E to LV E' Septal Ratio 16.5 TR Peak Velocity 289.0 cm/s TR Peak Gradient 33.4 mmHg Right Atrial Pressure 10.0 mmHg Pulmonary Artery Systolic Pressu 43.4 mmHg Right Ventricular Systolic Press 43.4 mmHg PV Peak Velocity 73.7 cm/s PV Peak Gradient 2.2 mmHg FINDINGS LEFT VENTRICLE Normal left ventricular size. Mild concentric left ventricular hypertrophy. The left ventricular systolic function is normal with an estimated ejection fraction in the range of 60-65%. There is slight hpokinesis of the distal anterior wall and distal anteroseptal hughes. RIGHT VENTRICLE Normal right ventricular size and systolic function. LEFT ATRIUM The left atrial size is normal. RIGHT ATRIUM The right atrial size is normal. ATRIAL SEPTUM No atrial level shunt is demonstrated by color flow Doppler interrogation. AORTA The aortic root and proximal ascending aorta are normal in size on limited imaging. MITRAL VALVE Mild mitral valve regurgitation. AORTIC VALVE Trileaflet aortic valve. No aortic valve stenosis or regurgitation. TRICUSPID VALVE There is trace tricuspid valve regurgitation. The estimated pulmonary arterial pressure is 43.4 mmHg. PULMONARY VALVE The pulmonary valve is not well visualized. VESSELS The inferior vena cava is normal in size. PERICARDIUM No pericardial effusion. Moise Araujo MD (Electronically Signed) Final Date:19 May 2018 14:59
[2018-05-19] MEDS: Sod Chloride 0.9% Inj 1,000 ML IV.CONT SCH (15:48)
[2018-05-19 16:06] LABS: Chol/HDL Ratio 3.31 Ratio; HDL Cholesterol 68.7 mg/dL (40.0-60.0)
[2018-05-19 16:16] LABS: Thyroid Stimulating Hormone 4.01 uIU/mL (0.358-3.740)
--- NOTE | 2018-05-19 17:28 | ECG ---
Date Performed: 05/18/2018 Time Performed: 17:01:52 PTAGE: 78 years EKG: Sinus rhythm MARKED LEFT AXIS DEVIATION RIGHT BUNDLE BRANCH BLOCK SEPTAL MYOCARDIAL INFARCTION ABNORMAL ECG NO PREVIOUS TRACING DOCTOR: Susan Beltrán Interpretating Date/Time 05/19/2018 17:27:18
--- NOTE | 2018-05-19 17:29 | ECG ---
Date Performed: 05/19/2018 Time Performed: 03:02:32 PTAGE: 78 years EKG: Sinus rhythm MARKED LEFT AXIS DEVIATION RIGHT BUNDLE BRANCH BLOCK SEPTAL MYOCARDIAL INFARCTION ACUTE [place] PREVIOUS TRACING : 05/18/2018 17.01 Since the previous tracing, no significant change not ed DOCTOR: Susan Beltrán Interpretating Date/Time 05/19/2018 17:27:33
--- NOTE | 2018-05-19 17:29 | ECG ---
Date Performed: 05/19/2018 Time Performed: 08:58:43 PTAGE: 78 years EKG: Sinus rhythm WITH SINUS ARRHYTHMIA MARKED LEFT AXIS DEVIATION RIGHT BUNDLE BRANCH BLOCK SEPTAL MYOCARDIAL INFARCT ION ACUTE [place] PREVIOUS TRACING : 05/19/2018 03.02 Since the previous tracing, no significant change not ed DOCTOR: Susan Beltrán Interpretating Date/Time 05/19/2018 17:28:27
--- NOTE | 2018-05-19 18:44 | MR ---
EXAM DATE: 05/19/2018 6:36 PM EDT AGE/SEX: 78 years / Male INDICATIONS: Stroke. New stroke. CLINICAL DATA: This is the patient's initial encounter. Patient reports that signs and symptoms have been present for 1 day and indicates a pain score of 1/10. MEDICAL/SURGICAL HISTORY: Mesenteric ischemia. Carcinoma, prostatic. Stroke. Coronary artery stent. Fusion, cervical. Tonsillectomy. TURP, Jaw sx. COMPAR[place]: [facility] [place], 05/18/2018. [facility] [place], MRA HEAD W/O CONTRAST, 05/19/2018. C, MR HEAD W/O CONTRAST, 05/18/2018. . TECHNIQUE: Multiplanar, multisequence examination of the brain was performed without contrast. FINDINGS: Cerebrum: The ventricles are normal for age. No evidence of midline shift, mass lesion, hemorrhage or acute infarction. No extraaxial fluid collections are seen. The pituitary gland and suprasellar cistern are normal in configuration. White Matter: A few tiny foci of periventricular white matter FLAIR signal abnormality again noted o f both cerebral hemispheres, unchanged Posterior Fossa: The cerebellum and brainstem are intact. The 4th ventricle is midline. The cerebel lopontine angle is unremarkable. The cerebellar tonsils are normal in position. Diffusion Imaging: No focal areas of restricted diffusion are seen. No evidence of acute infarction . Extracranial: The visualized portions of the orbits and paranasal sinuses are unremarkable. CONCLUSION: 1. No acute abnormality demonstrated. 2. Trace chronic periventricular white matter changes are again noted. Electronically signed by: Anam Flowers MD 05/19/2018 6:43 PM EDT
[2018-05-20] MEDS: Methocarbamol 500 MG Tablet PO SCH ×3 (00:22→12:30)
[2018-05-20] MEDS: Sod Chloride 0.9% Inj 1,000 ML IV.CONT SCH (06:10)
--- NOTE | 2018-05-20 07:30 | P.PNNEU ---
Subjective Subjective Comments: No acute events reported No headache No chest pain No dyspnea Active Medications: Active Medications Acetaminophen (Tylenol) 650 mg PO Q4H PRN PRN Reason: HEADACHE OR TEMP > 101 F Acetaminophen (Tylenol) 650 mg PO Q4H PRN PRN Reason: SEE LABEL COMMENTS Alprazolam (Xanax) 0.25 mg PO BID [facility] Last Admin: 05/19/18 22:14 Dose: 0.25 mg Apixaban (Eliquis) 5 mg PO BID [facility] Last Admin: 05/19/18 20:59 Dose: 5 mg Diphenhydramine HCl (Benadryl) 25 mg PO Q4H PRN PRN Reason: SEE LABEL COMMENTS Last Admin: 05/19/18 11:32 Dose: 25 mg Duloxetine HCl (Cymbalta) 20 mg PO DAILY [facility] Last Admin: 05/19/18 10:11 Dose: Not Given Folic Acid (Folic Acid) 3 mg PO DAILY [facility] Hydrochlorothiazide (Hydrodiuril) 25 mg PO DAILY [facility] Last Admin: 05/19/18 10:10 Dose: 25 mg Ceftriaxone Sodium 1,000 mg/ (Sodium Chloride) 100 mls @ 200 mls/hr IV.SIG Q24H [facility] Last Infusion: 05/19/18 22:50 Dose: Infused Sodium Chloride (Ns Inj) 1,000 mls @ 70 mls/hr IV.CONT .[id number] [facility] Last Admin: 05/20/18 06:10 Dose: 70 mls/hr Methocarbamol (Robaxin) 500 mg PO QID [facility] Last Admin: 05/20/18 00:22 Dose: 500 mg Metoprolol Tartrate (Lopressor) 25 mg PO BID [facility] Last Admin: 05/19/18 21:00 Dose: 25 mg Morphine Sulfate (Morphine Inj) 2 mg IV.PUSH Q30M PRN PRN Reason: CHEST PAIN Nitroglycerin (Nitro-Bid 2% Oint) 1 inch TOPICAL Q6HR [facility] Last Admin: 05/20/18 06:10 Dose: Not Given Ondansetron HCl (Zofran Inj) 4 mg IV.PUSH Q6H PRN PRN Reason: NAUSEA OR VOMITING Oxycodone/Acetaminophen (Percocet 5/325 Mg) 1 tab PO Q4H PRN PRN Reason: Chronic Pain Last Admin: 05/19/18 22:14 Dose: 1 tab Pantoprazole Sodium (Protonix) 40 mg PO DAILY [facility] Last Admin: 05/19/18 10:12 Dose: 40 mg Phenazopyridine HCl (Pyridium) 100 mg PO TID [facility] Sodium Chloride (Ns Flush) 2 ml IV.FLUSH PRN PRN PRN Reason: FLUSH AFTER USING IV ACCESS Last Admin: 05/19/18 21:01 Dose: 2 ml Sodium Chloride (Ns Inj) 2 ml IV.FLUSH BID [facility] Last Admin: 05/19/18 21:03 Dose: Not Given Sodium Chloride (Ns Inj) 2 ml IV.FLUSH UNSCH PRN PRN Reason: FLUSH AFTER USING IV ACCESS Terazosin HCl (Hytrin) 5 mg PO BID [facility] Last Admin: 05/19/18 21:00 Dose: 5 mg Ticagrelor (Brilinta) 90 mg PO BID [facility] Last Admin: 05/19/18 21:01 Dose: 90 mg Allergies/Adverse Reactions: Allergies Allergy/AdvReac Type Severity Reaction Status Date / Time diatrizoate meglumine Allergy Unknown Gastrointestinal Verified 05/18/18 17:44 Upset gadobenic acid Allergy Unknown Hotflash Unverified 05/18/18 17:44 gadodiamide Allergy Unknown Edema, Unverified 05/18/18 17:44 Generalized gadoteridol Allergy Unknown Gastrointestinal Unverified 05/18/18 17:44 Upset iodine Allergy Unknown Gastrointestinal Unverified 05/18/18 17:44 Upset iodixanol Allergy Unknown Gastrointestinal Unverified 05/18/18 17:44 Upset iohexol Allergy Unknown Gastrointestinal Unverified 05/18/18 17:44 Upset potassium iodide Allergy Unknown Gastrointestinal Unverified 05/18/18 17:44 Upset povidone-iodine Allergy Unknown Gastrointestinal Unverified 05/18/18 17:44 Upset sodium iodide Allergy Unknown Gastrointestinal Verified 05/18/18 17:44 Upset sodium iodide Allergy Unknown Gastrointestinal Verified 05/18/18 17:44 Upset Physical Exam Vital signs: Vital Signs 05/19/18 10:22 05/19/18 12:23 05/19/18 14:33 Temperature 98.2 F Pulse Rate 81 89 104 H Respiratory Rate 14 16 19 Blood Pressure 131/71 132/87 156/92 H Pulse Oximetry 96 96 97 05/19/18 16:00 05/19/18 19:52 05/19/18 19:53 Temperature 98.1 F Pulse Rate 97 H Respiratory Rate 18 Blood Pressure 155/88 H Pulse Oximetry 98 98 98 05/19/18 20:00 05/19/18 21:00 05/20/18 00:00 Temperature 97.9 F 98.3 F Pulse Rate 97 H 81 82 Respiratory Rate 16 16 Blood Pressure 103/70 117/71 Pulse Oximetry 95 97 96 05/20/18 02:10 05/20/18 04:00 Temperature 97.6 F Pulse Rate 72 Respiratory Rate 18 16 Blood Pressure 113/64 Pulse Oximetry 96 Intake & Output 05/19/18 05/20/18 05/20/18 18:59 06:59 18:59 Intake Total 1100 / 1100 2590 / 2590 Output Total 380 / 380 1500 / 1500 Balance 720 / 720 1090 / 1090 Intake: IV 1100 / 1100 2200 / 2200 Heparin/D5W 25,000 U/250 mL 25, 100 / 100 000 unit In 250 ml @ Per Protocol IV.CONT TITRATE PRN Rx #:[id number] NS Inj 1,000 ML @ 70 mls/hr IV. 1000 / 1000 2000 / 2000 CONT .[id number] [facility] Rx#:[id number] Rocephin Inj 1,000 MG In NS Inj 100 / 100 100 / 100 100 ML @ 200 mls/hr IV.SIG Q24H [facility] Rx#:[id number] Oral 390 / 390 Output: Urine 380 / 380 1500 / 1500 Other: Date of Last Bowel Movement 05/13/48 Narrative: awake moving all 4 ext well inc tone rue intermittently Objective Laboratory Results - last 24 hr 05/19/18 05/19/18 05/19/18 07:25 07:25 07:25 WBC 4.6 RBC 3.42 L Hgb 11.5 L Hct 34.9 L MCV 101.9 H MCH 33.6 MCHC 33.0 RDW 13.0 Plt Count 227 MPV 8.3 Neut % (Auto) 66.4 Lymph % (Auto) 17.8 [place] % (Auto) 12.6 H Eos % (Auto) 2.8 Baso % (Auto) 0.4 Neut # (Auto) 3.0 Lymph # (Auto) 0.8 L [place] # (Auto) 0.6 Eos # (Auto) 0.1 Baso # (Auto) 0.0 WBC Differential . Differential Comment Auto diff final ESR APTT Sodium 142 Potassium 4.2 Chloride 113 H Carbon Dioxide 20.6 L Anion Gap 8 BUN 7 Creatinine 0.77 Estimated GFR Greater than 89 POC Glucose Random Glucose 92 Calcium 7.6 L D Total Creatine Kinase 131 Troponin I 3.90 H* Triglycerides Cholesterol LDL Cholesterol, Calc HDL Cholesterol Cholesterol/HDL Ratio Vitamin B12 TSH Thyroxine (T4) 05/19/18 05/19/18 05/19/18 15:09 15:09 15:09 WBC RBC Hgb Hct MCV MCH MCHC RDW Plt Count MPV Neut % (Auto) Lymph % (Auto) [place] % (Auto) Eos % (Auto) Baso % (Auto) Neut # (Auto) Lymph # (Auto) [place] # (Auto) Eos # (Auto) Baso # (Auto) WBC Differential Differential Comment ESR 57 H APTT Sodium Potassium Chloride Carbon Dioxide Anion Gap BUN Creatinine Estimated GFR POC Glucose Random Glucose Calcium Total Creatine Kinase Troponin I Triglycerides Cholesterol LDL Cholesterol, Calc HDL Cholesterol Cholesterol/HDL Ratio Vitamin B12 799 TSH 4.010 H Thyroxine (T4) 11.8 05/19/18 05/19/18 05/19/18 15:09 15:09 15:15 WBC RBC Hgb Hct MCV MCH MCHC RDW Plt Count MPV Neut % (Auto) Lymph % (Auto) [place] % (Auto) Eos % (Auto) Baso % (Auto) Neut # (Auto) Lymph # (Auto) [place] # (Auto) Eos # (Auto) Baso # (Auto) WBC Differential Differential Comment ESR APTT 33.6 H D Sodium Potassium Chloride Carbon Dioxide Anion Gap BUN Creatinine Estimated GFR POC Glucose 86 Random Glucose Calcium Total Creatine Kinase Troponin I Triglycerides 69 Cholesterol 228 H LDL Cholesterol, Calc 146 H HDL Cholesterol 68.7 H Cholesterol/HDL Ratio 3.31 Vitamin B12 TSH Thyroxine (T4) 05/19/18 21:42 WBC RBC Hgb Hct MCV MCH MCHC RDW Plt Count MPV Neut % (Auto) Lymph % (Auto) [place] % (Auto) Eos % (Auto) Baso % (Auto) Neut # (Auto) Lymph # (Auto) [place] # (Auto) Eos # (Auto) Baso # (Auto) WBC Differential Differential Comment ESR APTT 29.6 Sodium Potassium Chloride Carbon Dioxide Anion Gap BUN Creatinine Estimated GFR POC Glucose Random Glucose Calcium Total Creatine Kinase Troponin I Triglycerides Cholesterol LDL Cholesterol, Calc HDL Cholesterol Cholesterol/HDL Ratio Vitamin B12 TSH Thyroxine (T4) Microbiology 05/18/18 19:10 Urine Culture - Preliminary Clean Catch Urine No growth in 24 hours Review/Management - Review/Management Plan: imp an episode of rue spasm last pm on eliquis repeat mri nothing new rue sx from c spine some intermittent spasticity and he will address this with his o/p neurologist neurowise can dc after loop put in ldl too high and this needs to be addressed, needs statin
--- NOTE | 2018-05-20 08:48 | P.PNCA ---
Subjective Interval history: No angina. With a deep breath mild right side discomfort not as bad as yesterday Physical Exam Vital signs: Vital Signs 05/19/18 10:22 05/19/18 12:23 05/19/18 14:33 Temperature 98.2 F Pulse Rate 81 89 104 H Respiratory Rate 14 16 19 Blood Pressure 131/71 132/87 156/92 H Pulse Oximetry 96 96 97 05/19/18 16:00 05/19/18 19:52 05/19/18 19:53 Temperature 98.1 F Pulse Rate 97 H Respiratory Rate 18 Blood Pressure 155/88 H Pulse Oximetry 98 98 98 05/19/18 20:00 05/19/18 21:00 05/20/18 00:00 Temperature 97.9 F 98.3 F Pulse Rate 97 H 81 82 Respiratory Rate 16 16 Blood Pressure 103/70 117/71 Pulse Oximetry 95 97 96 05/20/18 02:10 05/20/18 04:00 Temperature 97.6 F Pulse Rate 72 Respiratory Rate 18 16 Blood Pressure 113/64 Pulse Oximetry 96 Intake & Output 05/19/18 05/20/18 05/20/18 18:59 06:59 18:59 Intake Total 1100 / 1100 2590 / 2590 Output Total 380 / 380 1500 / 1500 Balance 720 / 720 1090 / 1090 Weight 76.8 kg Intake: IV 1100 / 1100 2200 / 2200 Heparin/D5W 25,000 U/250 mL 25, 100 / 100 000 unit In 250 ml @ Per Protocol IV.CONT TITRATE PRN Rx #:[id number] NS Inj 1,000 ML @ 70 mls/hr IV. 1000 / 1000 1999 / 1999 CONT .[id number] [facility] Rx#:[id number] Rocephin Inj 1,000 MG In NS Inj 100 / 100 100 / 100 100 ML @ 200 mls/hr IV.SIG Q24H [facility] Rx#:[id number] Oral 390 / 390 Output: Urine 380 / 380 1500 / 1500 Other: Date of Last Bowel Movement 05/13/48 Narrative: Alert No JVD Chest clear CV S1S2 RRR no edema Assessment and Plan - Assessment (1) Stented coronary artery Code(s): Z95.5 - Presence of coronary angioplasty implant and graft Status: Acute Plan: Since neurology recommends anticoagulation will use Eliquis with Brilinta and delete aspirin (2) Coronary artery disease Code(s): I25.10 - Atherosclerotic heart disease of [place] coronary artery without angina pectoris Status: Acute Plan: single vessel (3) Pulmonary embolism Code(s): I26.99 - Other pulmonary embolism without acute cor pulmonale Status : Acute Plan: history of PE in past year (4) Recent myocardial infarction Status: Acute Plan: LV function preserved (5) Elevated troponin Code(s): R74.8 - Abnormal levels of other serum enzymes Status: Acute Plan: suspect secondary to MA 7 days ago (6) Hyperlipidemia Code(s): E78.5 - Hyperlipidemia, unspecified Status: Acute Plan: start atorvastatin (7) CVA (cerebral vascular accident) Code(s): I63.9 - Cerebral infarction, unspecified Status: Acute Plan: High risk of CVA. Neurology advises loop recorder. Informed consent obtained - will insert this AM
[2018-05-20] MEDS ORDERED: Folic Acid 1 MG Tablet PO SCH (09:00)
[2018-05-20] MEDS ORDERED: Lidocaine 2%/Epinephrine 1;100,000 Inj 50 ML Vial ONE (09:23)
[2018-05-20] MEDS ORDERED: Midazolam Inj 5 MG/ML 1 ML Vial ONE (09:23)
--- NOTE | 2018-05-20 09:49 | MP ---
cc: Moise Araujo MD DATE OF OPERATION: 05/20/2018 PREOPERATIVE DIAGNOSIS: Bilateral cerebrovascular accident/transient ischemic attack suspected to be due to cardiac emboli with a strong suspicion for atrial fibrillation. POSTOPERATIVE DIAGNOSIS: Bilateral cerebrovascular accident/transient ischemic attack suspected to be due to cardiac emboli with a strong suspicion for atrial fibrillation. PROCEDURE PERFORMED: Insertion of loop recorder. DESCRIPTION OF PROCEDURE: Informed consent was obtained from the patient. The patient received 1 mg of IV Versed for sedation. He was prepped and draped in a sterile fashion. Using 1% lidocaine with epinephrine for local anesthetic and using the recorder insertion kit, an incision was made and the loop recorder was inserted without difficulty. There was adequate sensing with her 0.37 millivolt R-wave. The patient tolerated the procedure adequately. There were no complications. There was no blood loss. FINDINGS: The device is a [employer] Reveal LINQ, model LNQ11, serial number [id number]. The detected R-wave was 0.37 millivolts. Steri-Strips and a dressing were applied. Moise Araujo MD VEW/DL , 09:40 AM , 09:48 AM
[2018-05-20] MEDS: Metoprolol Tartrate 25 MG Tablet PO SCH (10:43)
[2018-05-20] MEDS: ALPRAZolam 0.25 MG Tablet PO SCH ×2 (10:43→10:50)
[2018-05-20] MEDS: hydroCHLOROthiazide 25 MG Tablet PO SCH (10:44)
--- NOTE | 2018-05-20 16:35 | P.DS ---
Date of admission: 05/18/18 20:33 Primary care physician: [facility] Brief History from admission: 78-year-old male with a past medical history significant for previous CVA, hypertension, hyperlipidemia, CAD status post AK on 05/13/18 with stent placement to the LAD presents the emergency department for the evaluation of right sided numbness and weakness. The patient states that earlier today his right hand and arm became numb and weak. He states he has similar symptoms in his right lower extremity and that it is just "not working the way he wants it to." He also endorses a right shoulder pain with tingling down his right arm and a left lower extremity pain that he believes is just muscle cramping. [facility] and had [facility] C3 through C6 fusion on 04/24/18. His troponin is elevated at 5.35. He denies any chest pain or shortness of breath. No abdominal pain. No nausea/vomiting/diarrhea. No fevers/chills. DS: Medications - Discharge Medications Prescriptions: apixaban [Eliquis] 5 mg PO BID #60 tab atorvastatin 20 mg PO DAILY #30 tab Lactobacillus acidophilus 500 mmu cells PO TID 10 Days #30 cap sulfamethoxazole-trimethoprim [Bactrim DS] 1 tab PO Q12H 5 Days #10 tab DS: Summary Hospital Course: Mr. Gilliland is a 78 year old male. He has a history of CVA and recent AK with stent placement. He was admitted secondary to weakness of the right upper extremity. Workup was negative for stroke. His medications have been adjusted. Statin has been added and Eliquis has been added. Neurology and cardiology has cleared this patient at this time. He is medically stable and cleared to return to home. Symptoms are improved. Urinary tract infection is discovered and may be contributory. He sent home also with antibiotic treatments and probiotics. Medically stable and cleared for discharge home today. - Time Spent with Patient Total time spent providing and/or coordinating discharge services: - Quality: VTE Deep Vein Thrombosis/Pulmonary Embolism Present on Admission: No Exam Vital signs: Vital Signs 05/19/18 19:52 05/19/18 19:53 05/19/18 20:00 Temperature 97.9 F Pulse Rate 97 H Respiratory Rate 16 Blood Pressure 103/70 Pulse Oximetry 98 98 95 05/19/18 21:00 05/20/18 00:00 05/20/18 02:10 Temperature 98.3 F Pulse Rate 81 82 Respiratory Rate 16 18 Blood Pressure 117/71 Pulse Oximetry 97 96 05/20/18 04:00 05/20/18 08:00 05/20/18 09:35 Temperature 97.6 F 97.5 F L Pulse Rate 72 79 Respiratory Rate 16 20 Blood Pressure 113/64 122/85 Pulse Oximetry 96 96 96 05/20/18 12:00 Temperature 97.4 F L Pulse Rate 89 Respiratory Rate 20 Blood Pressure 102/69 Pulse Oximetry 93 L Intake & Output 05/19/18 05/20/18 05/20/18 18:59 06:59 18:59 Intake Total 1100 / 1100 2590 / 2590 Output Total 380 / 380 1500 / 1500 Balance 720 / 720 1090 / 1090 Weight 76.8 kg Intake: IV 1100 / 1100 2200 / 2200 Heparin/D5W 25,000 U/250 mL 25, 100 / 100 000 unit In 250 ml @ Per Protocol IV.CONT TITRATE PRN Rx #:[id number] NS Inj 1,000 ML @ 70 mls/hr IV. 1000 / 1000 2000 / 2000 CONT .[id number] GIBRAN Rx#:[id number] Rocephin Inj 1,000 MG In NS Inj 100 / 100 100 / 100 100 ML @ 200 mls/hr IV.SIG Q24H GIBRAN Rx#:[id number] Oral 390 / 390 Output: Urine 380 / 380 1500 / 1500 Other: Date of Last Bowel Movement 05/13/48 Results Procedures completed during hospitalization: none Labs on day of discharge: Labs from last 24 hours 05/19/18 05/19/18 21:42 15:09 APTT 29.6 YARY Screen Neg - Impressions ITS Impressions Cervical Spine MRI 05/18/18 17:35 CONCLUSION: 1. Status post fusion at the C3-C6 levels. There is some increased signal within the vertebral bodies likely related to postoperative change. Focal fluid collection is not seen. There is minimal prevertebral edema seen inferior to this level. 2. The suspected osteophytic ridging at the C3-C4 and C4-C5 levels causing impressions on the thecal sac. At the C4-C5 level this abuts the anterior right side of the cord. There is a small focal area of myelomalacia within the cord measuring 2 mm at the C4-C5 level. 3. Mild disc bulge at the C6-C7 level causing a mild to moderate impression on the thecal sac. 4. Uncovertebral hypertrophy causing neural foraminal narrowing at the C3-C4 through C6-C7 levels as described above. Head CT 05/18/18 20:32 CONCLUSION: No acute intracranial abnormality. Chest X-Ray 05/18/18 21:19 CONCLUSION: Prominence of interstitium. Underlying interstitial disease may be present. Some degree of edema may be present. Head MRA 05/19/18 00:00 CONCLUSION: 1. Unremarkable exam. 2. No evidence of significant steno-occlusive disease. Neck MRA 05/19/18 00:00 CONCLUSION: 1. Negative MR angiography of the carotid arteries Percent stenosis is calculated using the diameter of the stenotic region over the diameter of the normal distal internal carotid artery Head MRI 05/19/18 16:06 CONCLUSION: 1. No acute abnormality demonstrated. 2. Trace chronic periventricular white matter changes are again noted. Discharge Plan - Discharge Disposition Patient Disposition: 01 Discharge Home - Discharge Condition Condition: Stable - Discharge Order Discharge Orders: Discharge Order (Routine); Ordered 05/20/18 Ordered By: Jameel Bentley - Discharge Details Anticipated Discharge Date: 05/20/18 - Physicians Team Primary Care Provider: [facility] Attending Provider: Jameel Bentley Other Providers: Dalton Serrano MD ; Moise Araujo MD
[2018-05-22 19:21] LABS: Factor V Leiden Mutation Negative (Negative); Methylmalonic Acid 0.11 nmol/mL (<=0.40); Protein C Functional 87 % (70 - 150)
[2018-05-25 15:52] LABS: Dil Russell Viper Venom Conf ( ND (NEGATIVE); Dil Russell Viper Venom Time M ND (CORRECTED); Lupus Anticoagulant PTT Screen 50 seconds (< OR = 40)
== END 2018-05-20 17:53 | disposition home or self-care (01) ==
LOC: NEPE 16:47 → NEDA 20:33 → NEDH 05-19 04:36 → N05 05-19 13:30
PROVIDERS: ADMIT Hospitalist; ATTEND Hospitalist
PROC: LOOPREV (2018-05-20 09:30)
DX: M54.10 Radiculopathy, site unspecified; F32.9 Major depressive disorder, single episode, unspecified; I48.91 Unspecified atrial fibrillation; F41.9 Anxiety disorder, unspecified; R20.0 Anesthesia of skin; M25.511 Pain in right shoulder; Z90.79 Acquired absence of other genital organ(s); E78.5 Hyperlipidemia, unspecified; Z79.891 Long term (current) use of opiate analgesic; Z95.5 Presence of coronary angioplasty implant and graft; Z79.82 Long term (current) use of aspirin; I10 Essential (primary) hypertension; Z79.899 Other long term (current) drug therapy; L40.9 Psoriasis, unspecified; I21.3 ST elevation (STEMI) myocardial infarction of unspecified site; Z86.711 Personal history of pulmonary embolism; N39.0 Urinary tract infection, site not specified; I69.354 Hemiplegia and hemiparesis following cerebral infarction affecting left non-dominant side; H91.90 Unspecified hearing loss, unspecified ear; Z88.8 Allergy status to other drugs, medicaments and biological substances; I25.10 Atherosclerotic heart disease of native coronary artery without angina pectoris; K21.9 Gastro-esophageal reflux disease without esophagitis; Z98.1 Arthrodesis status